=== PATIENT | male | born 1970 | race Caucasian/White ===

== ENCOUNTER 2018-11-03 11:12 | Emergency (ER) | payer MEDICAID, SELFPAY ==
[2018-11-03 11:26] VITALS: BP 150/96; PULSE 70; RESP 18; TEMP 36.9; O2SAT 98
--- NOTE | 2018-11-03 11:32 | W.ED.GENAD ---
Discharge Plan Disposition Patient Disposition: HOME Condition: Fair Discharge Details Chief Complaint: Laceration Clinical Impression: Hand laceration Primary Care Provider: Eduardo Cuellar ED Provider: Kamille Wolf Home Meds and New Rx's Prescriptions: Continued buprenorphine-naloxone [Suboxone] 12-3 mg Film 12 DAILY RF: 0 Discharge Instructions Instructions: Laceration (ED) Additional Instructions: Keep wound clean, dry, covered. Tylenol and ibuprofen as needed for discomfort. Please keep current dressing on for the next 24 hours. After that time, he may change to Band-Aid. Wear gloves when appropriate. Do not soak or submerge. May wash and he typically would with running water and soap. Please monitor for signs of infection including redness warmth, drainage, increased pain, fever/chills. If these or other new/worsening symptoms arise please seek care urgently once again. Please return in 1 week for suture removal. Referrals: Eduardo Cuellar MD [Primary Care Provider] - Medical Decision Making Patient is a 48 year old RHD male presenting for eval of laceration to left thenar emmenance. Was sharpening mower blade when he slipped with blade. Tetanus UTD. No sensory deficits. No tendon involvement. Full ROM. Discussed closure options with the patient, will close with suture. Verbal consent obtained. Please see procedure note. This was preformed using standard sterile technique. Patient tolerated well. Discussed wound care in depth. Discussed sxs of infection and when to seek car eurgently once again. He will return in 7 days for suture removal. Advised on what should prompt urgent evaluation once again. All of his questions and concerns were addressed, he is in agreement with this plan. HPI General Mode of arrival: ambulatory. Date/Time Provider Initiated Documentation: 11/03/18 11:32. Limitations to Documentation: no limitations. Information obtained by: patient. History of Present Illness 48 year old M presents to the emergency department with the chief complaint of laceration left hand, described as mild, Quality is described as aching, and is localized to the left and upper extremity. Patient reports no radiation. Patient started experiencing this minute(s) and it has been constant. No relieving factors improve symptom(s), No exacerbating factors reported . Patient notes no other symptoms.. Patient did receive the following treatments prior to arrival, none Related Data Home Medications Medication Instructions Recorded Confirmed buprenorphine-naloxone [Suboxone] 12 DAILY 11/03/18 Allergies Allergy/AdvReac Type Severity Reaction Status Date / Time No Known Allergies Allergy Unverified 11/03/18 11:30 General Stated Complaint: Laceration RIVERA: 3 Review of Systems Constitutional Reports as per HPI, Denies chills and Denies fever(s) Musculoskeletal Reports as per HPI Integumentary/Breasts Reports as per HPI Neurologic Reports as per HPI, Denies sensory deficit and Denies paresthesias [facility] Social History Smoking/Tobacco Use Status: Never Alcohol Intake: never Drug use: Never Do you feel safe at home: Yes Do you feel safe in your relationship?: Yes Exam Const General: cooperative, healthy appearing, comfortable, no acute distress and well developed Nutritional Appearance: average body habitus and well nourished Orientation: alert and awake Resp Effort & Inspection: normal respiratory effort, able to speak in complete sentences and no respiratory distress Cardio Rate: regular rate Rhythm: regular rhythm Skin Trauma: laceration (2.5cm linear laceration thenar emenance left hand) Neuro General: alert and awake Cognition: normal cognition Speech: speech normal Gait: normal gait Sensory Exam: no sensory deficits noted Extrem Left upper extremity: full ROM, normal capillary refill and hand Details: normal capillary refill, neuromotor exam normal, neurosensory exam normal, tendon exam normal, tenderness (over laceration) and laceration; no unusual warmth and no swelling; abnormal to inspection (laceration as above) Psych Appearance: grossly normal and well kempt Mental Status: mental status grossly normal Speech and Movement: speech and movement normal Course Vital Signs Temperature 36.9 C 11/03/18 11:26 Pulse 70 11/03/18 11:26 Respiratory Rate 18 11/03/18 11:26 Blood Pressure 150/96 H 11/03/18 11:26 Pulse Oximetry 98 11/03/18 11:26 Temperature 36.9 C 11/03/18 11:26 Temperature Source Temporal Artery Scan 11/03/18 11:26 Pulse 70 11/03/18 11:26 Respiratory Rate 18 11/03/18 11:26 Blood Pressure 150/96 H 11/03/18 11:26 Blood Pressure Position Sitting 11/03/18 11:26 Pulse Oximetry 98 11/03/18 11:26 Oxygen Delivery Method Room Air 11/03/18 11:26 Oxygen Flow Rate 0 11/03/18 11:26 Procedures Laceration Laceration 1: Site: hand Side (If applicable): left Size (cm): 2.5 Description: linear Depth: simple, single layer Local Anesthetic: Lidocaine 1% Amount of anesthesia used (mL): 4 Pre-repair: wound explored, irrigated extensively and deep structures intact Skin layer closed with: nylon Size (cm): 5-0 Number of sutures: 4 Technique: simple, interrupted
--- NOTE | 2018-11-03 12:05 | ED.GENADUL_ITS ---
Discharge Plan Disposition Patient Disposition: HOME Condition: Fair Discharge Details Chief Complaint: Laceration Clinical Impression: Hand laceration Primary Care Provider: Eduardo Cuellar ED Provider: Kamille Wolf Home Meds and New Rx's Prescriptions: Continued buprenorphine-naloxone [Suboxone] 12-3 mg Film 12 DAILY RF: 0 Discharge Instructions Instructions: Laceration (ED) Additional Instructions: Keep wound clean, dry, covered. Tylenol and ibuprofen as needed for discomfort. Please keep current dressing on for the next 24 hours. After that time, he may change to Band-Aid. Wear gloves when appropriate. Do not soak or submerge. May wash and he typically would with running water and soap. Please monitor for signs of infection including redness warmth, drainage, increased pain, fever/chills. If these or other new/worsening symptoms arise please seek care urgently once again. Please return in 1 week for suture removal. Referrals: Eduardo Cuellar MD [Primary Care Provider] - Medical Decision Making Patient is a 48 year old RHD male presenting for eval of laceration to left thenar emmenance. Was sharpening mower blade when he slipped with blade. Tetanus UTD. No sensory deficits. No tendon involvement. Full ROM. Discussed closure options with the patient, will close with suture. Verbal consent obtained. Please see procedure note. This was preformed using standard sterile technique. Patient tolerated well. Discussed wound care in depth. Discussed sxs of infection and when to seek car eurgently once again. He will return in 7 days for suture removal. Advised on what should prompt urgent evaluation once again. All of his questions and concerns were addressed, he is in agreement with this plan. HPI General Mode of arrival: ambulatory . Date/Time Provider Initiated Documentation: 11/03/18 11:32 . Limitations to Documentation: no limitations . Information obtained by: patient . History of Present Illness 48 year old M presents to the emergency department with the chief complaint of laceration left hand, described as mild, Quality is described as aching, and is localized to the left and upper extremity. Patient reports no radiation. Patient started experiencing this minute(s) and it has been constant. No relieving factors improve symptom(s), No exacerbating factors reported . Patient notes no other symptoms.. Patient did receive the following treatments prior to arrival, none Related Data Home Medications Medication Instructions Recorded Confirmed buprenorphine-naloxone [Suboxone] 12 DAILY 11/03/18 Allergies Allergy/AdvReac Type Severity Reaction Status Date / Time No Known Allergies Allergy Unverified 11/03/18 11:30 General Stated Complaint: Laceration RIVERA: 3 Review of Systems Constitutional Reports as per HPI, Denies chills and Denies fever(s) Musculoskeletal Reports as per HPI Integumentary/Breasts Reports as per HPI Neurologic Reports as per HPI, Denies sensory deficit and Denies paresthesias [facility] Social History Smoking/Tobacco Use Status: Never Alcohol Intake: never Drug use: Never Do you feel safe at home: Yes Do you feel safe in your relationship?: Yes Exam Const General: cooperative, healthy appearing, comfortable, no acute distress and well developed Nutritional Appearance: average body habitus and well nourished Orientation: alert and awake Resp Effort & Inspection: normal respiratory effort, able to speak in complete sentences and no respiratory distress Cardio Rate: regular rate Rhythm: regular rhythm Skin Trauma: laceration (2.5cm linear laceration thenar emenance left hand) Neuro General: alert and awake Cognition: normal cognition Speech: speech normal Gait: normal gait Sensory Exam: no sensory deficits noted Extrem Left upper extremity: full ROM, normal capillary refill and hand Details: normal capillary refill, neuromotor exam normal, neurosensory exam normal, tendon exam normal, tenderness (over laceration) and laceration; no unusual warmth and no swelling; abnormal to inspection (laceration as above) Psych Appearance: grossly normal and well kempt Mental Status: mental status grossly normal Speech and Movement: speech and movement normal Course Vital Signs Temperature 36.9 C 11/03/18 11:26 Pulse 70 11/03/18 11:26 Respiratory Rate 18 11/03/18 11:26 Blood Pressure 150/96 H 11/03/18 11:26 Pulse Oximetry 98 11/03/18 11:26 Temperature 36.9 C 11/03/18 11:26 Temperature Source Temporal Artery Scan 11/03/18 11:26 Pulse 70 11/03/18 11:26 Respiratory Rate 18 11/03/18 11:26 Blood Pressure 150/96 H 11/03/18 11:26 Blood Pressure Position Sitting 11/03/18 11:26 Pulse Oximetry 98 11/03/18 11:26 Oxygen Delivery Method Room Air 11/03/18 11:26 Oxygen Flow Rate 0 11/03/18 11:26 Procedures Laceration Laceration 1: Site: hand Side (If applicable): left Size (cm): 2.5 Description: linear Depth: simple, single layer Local Anesthetic: Lidocaine 1% Amount of anesthesia used (mL): 4 Pre-repair: wound explored, irrigated extensively and deep structures intact Skin layer closed with: nylon Size (cm): 5-0 Number of sutures: 4 Technique: simple, interrupted
== END 2018-11-03 12:08 | disposition home or self-care (01) ==
PROVIDERS: Emergency Provider Physician Assistant; PCP Internal Medicine
DX: S61.412A Laceration without foreign body of left hand, initial encounter (principal); W28.XXXA Contact with powered lawn mower, initial encounter
CPT/HCPCS: 12001

== ENCOUNTER 2019-11-04 16:16 | Outpatient (REF) | payer MEDICAID, SELFPAY ==
[2019-11-05 23:31] LABS: COVID-19 RT-PCR Result NEGATIVE (Negative)
== END 2019-11-04 16:36 ==
LOC: NCHCN 16:16
PROVIDERS: PCP Internal Medicine; Visit Provider Nurse Practitioner Family
DX: Z20.828 Contact with and (suspected) exposure to other viral communicable diseases (principal)
CPT/HCPCS: U0003

== ENCOUNTER 2020-01-06 12:44 | Outpatient (REF) | payer MEDICAID, SELFPAY ==
[2020-01-06 20:23] LABS: FREE T4 1.18 ng/dL (0.76-1.46); TSH 1.09 uIU/mL (0.36-3.74)
== END 2020-01-06 13:04 ==
LOC: NCHCN 12:44
PROVIDERS: PCP Internal Medicine; Visit Provider Internal Medicine
DX: R49.0 Dysphonia (principal); E04.1 Nontoxic single thyroid nodule; I10 Essential (primary) hypertension
CPT/HCPCS: 84439; 84443

== ENCOUNTER 2021-10-11 10:16 | Outpatient (REF) | payer OTHER, SELFPAY ==
--- NOTE | 2021-10-11 09:30 | TONG_PTH ---
PATIENT: Des Morillo LOC: [facility] U#:[id number] AGE/SX: 51/M ROOM: RE10/11/[address]: SHILPI Terry : 1970 BED: DIS: 10/11/2021 SPEC #: [id number] RECD: 10/11/21 14:37 STATUS: JENNIFER HENDRICKS #: [id number] GABRIEL: 10/11/21 09:[address]: Mal Ace DEPT: Surgical Specimen RECD BY: Araseli Mcclellan ENTERED: 10/11/21 14:38 SP TYPE: GEETHA MCKEON DR: Eduardo Cuellar Tissues: 1 - TONGUE BIOPSY Procedures: GROSS AND MICRO LEVEL 4 Comments: [id number]
== END 2021-10-11 10:17 | disposition home or self-care (01) ==
LOC: LBN 10:16
PROVIDERS: PCP Internal Medicine; Visit Provider Physician Assistant
DX: K14.8 Other diseases of tongue (principal); Z87.891 Personal history of nicotine dependence
CPT/HCPCS: 88305

== ENCOUNTER 2022-10-23 16:32 | Outpatient (REF) | payer MEDICAID, SELFPAY ==
[2022-10-23 19:24] LABS: Hemoglobin A1C 5.1 % (<5.7)
[2022-10-23 19:26] LABS: ALT 27 U/L (16-63); AST 36 U/L (15-37); Albumin 4.4 g/dL (3.4-5.0); Alkaline Phosphatase 100 U/L (46-116); Anion Gap 11.8 mmol/L (3-11); BUN 16 mg/dL (7-18); Bilirubin, Total 0.8 mg/dL (0.2-1.0); CO2 22.2 mmol/L (21.0-32.0); CREATININE 1.1 mg/dL (0.70-1.30); Calcium 8.7 mg/dL (8.5-10.1); Calculated LDL 60 mg/dL (<100); Chloride 97 mmol/L (98-107); Cholesterol 137 mg/dL (<200); Estimated GFR 80.77 (mL/min/1.73m2); Glucose 84 mg/dL (74-106); HDL Cholesterol 68 mg/dL (40-60); Potassium 4.3 mmol/L (3.5-5.1); Sodium 131 mmol/L (136-145); TSH (W/Ref FT4) 1.93 uIU/mL (0.36-3.74); Total Protein 7.7 g/dL (6.4-8.2); Triglyceride 45 mg/dL (<150)
[2022-10-25 09:27] LABS: HIV-1/2 Ag & Ab Screen Negative (Negative)
[2022-10-27 10:38] LABS: Hepatitis C Ab w Rflx HCV PCR Negative (Negative)
== END 2022-10-23 16:33 | disposition home or self-care (01) ==
LOC: NCHCN 16:32
PROVIDERS: PCP Internal Medicine; Visit Provider Nurse Practitioner Family
DX: I10 Essential (primary) hypertension (principal); E04.1 Nontoxic single thyroid nodule; Z13.1 Encounter for screening for diabetes mellitus; Z11.4 Encounter for screening for human immunodeficiency virus [HIV]; Z11.59 Encounter for screening for other viral diseases
CPT/HCPCS: 80053; 80061; 86803; 87389; 83036; 84443

== ENCOUNTER 2023-06-18 10:06 | Outpatient (REF) | payer MEDICAID, SELFPAY ==
[2023-06-18 15:58] LABS: Anion Gap 5.8 mmol/L (3-11); BUN 20 mg/dL (7-18); CO2 27.2 mmol/L (21.0-32.0); Calcium 8.6 mg/dL (8.5-10.1); Chloride 104 mmol/L (98-107); Glucose 105 mg/dL (74-106); Potassium 4.6 mmol/L (3.5-5.1); Sodium 137 mmol/L (136-145)
== END 2023-06-18 10:07 | disposition home or self-care (01) ==
LOC: NCHCN 10:06
PROVIDERS: PCP Nurse Practitioner Family; Visit Provider Nurse Practitioner Family
DX: Z82.49 Family history of ischemic heart disease and other diseases of the circulatory system (principal)
CPT/HCPCS: 80048

== ENCOUNTER → 2023-06-25 02:53 | Outpatient (CLI) | payer MEDICAID, SELFPAY ==
--- NOTE | 2023-06-25 | DI.CT_ITS ---
Exam(s) CT BRAIN CTA EXAM: CT BRAIN CTA CLINICAL HISTORY: FAMILY H/O ANEURYSM,Z82.49,INTERMITTENT DIZZINESS. TECHNIQUE: Imaging Protocol: Both noninfused and contrast infused CT scans of the brain were perform ed. IV Contrast Dose =75 cc Axial computed tomography images with coronal and sagittal reformatted images were created and review ed COMPARISON: No exams were available for comparison FINDINGS: Anterior circulation: Both internal carotid arteries are patent in the skull base-carotid canals as w ell as within the cavernous sinuses. Supraclinoid aspects are patent and nonaneurysmal. Both A1 seg ments are patent as are the anterior cerebral arteries and there is no evidence of aneurysm at the le meenu of the anterior communicating artery. Both middle cerebral arteries are patent. No significant stenosis. No aneurysms seen in these vesse ls. Posterior circulation: At the skull base both vertebral arteries contribute to the formation of the b asilar artery. The basilar artery ascends with normal luminal diameter. Distally gives off superior cerebellar arteries and above this level terminates as patent bilateral posterior cerebral arteries. There is no aneurysm at the level of the tip of the basilar artery nor elsewhere in the [place]. There are no skull fractures nor fluid in the visualized paranasal sinuses. There is no evidence of intracranial hemorrhage, mass effect, or shift of midline structures. There are no extra-axial fluid collections. The ventricles are not enlarged or shifted and there is no blo od within the ventricular system nor within the basal cisterns. There are no ring enhancing lesions in the brain and there is no abnormal meningeal enhancement, foca l or diffuse. IMPRESSION: No significant intracranial findings.No aneurysms evident. No significant enhancing intracranial findings. RADIATION DOSE DELIVERED: 1,891.35mGy.cm Total DLP DATA REPOSITORY: All CT scans at this facility are submitted to the National Radiology Data Registry (NRDR) Dose Index Registry (DIR) with the [employer] (ACR). RADIATION OPTIMIZATION: All CT scans at this facility use at least one of these dose optimization te chniques: automated exposure control; mA and/or kV adjustment per patient size (includes targeted exa ms where dose is matched to clinical indication); or iterative reconstruction.
[2023-06-25] MEDS: Omnipaque 350 MG/ML 100 ML BTL 85 ML IJ (09:02)
[2023-06-25] MEDS: Normal Saline - Diluent 50 ML VIAL IJ (09:03)
== END ==
PROVIDERS: PCP Nurse Practitioner Family; Visit Provider Nurse Practitioner Family
DX: Z82.49 Family history of ischemic heart disease and other diseases of the circulatory system (principal); R42 Dizziness and giddiness
CPT/HCPCS: 70496; J3490

== ENCOUNTER 2023-07-01 14:01 | Outpatient (CLI) | payer MEDICAID, SELFPAY ==
--- NOTE | 2023-07-01 14:02 | DI.RAD_ITS ---
Exam(s) XR SHOULDER LT COMPLETE 2+V EXAM: XR SHOULDER LT COMPLETE 2+V CLINICAL HISTORY: BILATERAL SHOULDER PAIN. TECHNIQUE: 2D digital imaging was performed. Three views. COMPARISON: No exams were available for comparison FINDINGS: BONES: No acute fracture is present. No bony destructive lesion is seen. JOINTS: No dislocation present. Minimal spurring at the AC joint. Moderate narrowing of the glenohu meral joint space. Osteophyte of the inferior margin of the humeral head. sclerosis of the glenoid a mild inferior spurring. SOFT TISSUE: Normal. IMPRESSION: Moderate to severe degenerative changes of the glenohumeral joint. DATA REPOSITORY: RADIATION DOSE DELIVERED:
--- NOTE | 2023-07-01 14:03 | DI.RAD_ITS ---
Exam(s) XR SHOULDER RT COMPLETE 2+V EXAM: XR SHOULDER RT COMPLETE 2+V CLINICAL HISTORY: BILATERAL SHOULDER PAIN. TECHNIQUE: 2D digital imaging was performed. Two views. COMPARISON: No exams were available for comparison FINDINGS: BONES: No acute fracture is present. No bony destructive lesion is seen. JOINTS: No dislocation present. Moderate to severe narrowing of the glenohumeral joint. Prominent s pur the inferior margin of the humeral head. Mild spurring at the glenoid. Mild spurring at the AC joint. SOFT TISSUE: Normal. IMPRESSION: Moderate to severe degenerative changes of the glenohumeral joint DATA REPOSITORY: RADIATION DOSE DELIVERED:
== END 2023-07-01 14:02 | disposition home or self-care (01) ==
LOC: DIORS 14:03
PROVIDERS: PCP Nurse Practitioner Family; Visit Provider Student in an Organized Health Care Education/Training Program
DX: M19.011 Primary osteoarthritis, right shoulder; M19.012 Primary osteoarthritis, left shoulder
CPT/HCPCS: 73030

== ENCOUNTER → 2023-07-16 00:23 | Outpatient (CLI) | payer MEDICAID, SELFPAY ==
--- NOTE | 2023-07-16 07:30 | DI.RAD_ITS ---
Exam(s) RF JOINT INJ. FLUORO GUID RAD EXAM: RF JOINT INJ. FLUORO GUID RAD CLINICAL HISTORY: L SHOULDER PAIN,fluoro guided injection,oa lt glenohumeral jt,m19.012. The Patien t has had persistent left shoulder pain. Noninvasive measures have been tried. To serve as both vineet gnostic and therapeutic, an injection under fluoroscopy was recommended. The risks of the procedure were discussed with their Orthopedic provider and the patient elected to proceed. TECHNIQUE: 2D and realtime digital imaging was performed. CONTRAST MATERIAL: Water soluble contrast was utilized. COMPARISON: No exams were available for comparison FINDINGS: The Patient was greeted in the fluoroscopy room. The correct side was identified and the consent was reviewed with the patient and was signed. The patient was properly positioned on the fluoroscopy ta ble. The left shoulderwas then prepped with Chloraprep and draped. The left shoulder injection star ting point was identified by the bony landmarks and fluoroscopy. The skin and soft tissue in the tra ct of the injection was anesthetized with 1% Lidocaine. A spinal needle was then inserted into the l eft shoulder joint at the level of the glenohumeral joint under fluoroscopic guidance. A small amoun t of Omnipaque solution was injected to confirm intraarticular placement. Once confirmed, the left s houlder was injected with 5cc of a solution containing 0.5% Bupivaine and 80 mg of Depo-Medrol. A ba ndaid was placed on the injection site. The patient tolerated the procedure well and left the depart ment in good condition. IMPRESSION: Successful left shoulder injection. RADIATION DOSE DELIVERED: Sandrar=1.31 mGy
--- NOTE | 2023-07-16 15:15 | DI.RAD_ITS ---
Exam(s) RF JOINT INJ. FLUORO GUID RAD EXAM: RF JOINT INJ. FLUORO GUID RAD CLINICAL HISTORY: R SHOULDER PAIN,fluoro guided injection,oa rt glenohumeral jt,m19.011. The Patien t has had persistent right shoulder pain. Noninvasive measures have been tried. To serve as both di agnostic and therapeutic, an injection under fluoroscopy was recommended. The risks of the procedure were discussed with their Orthopedic provider and the patient elected to proceed. TECHNIQUE: 2D and realtime digital imaging was performed. CONTRAST MATERIAL: Water soluble contrast was utilized. COMPARISON: No exams were available for comparison FINDINGS: The Patient was greeted in the fluoroscopy room. The correct side was identified and the consent was reviewed with the patient and was signed. The patient was properly positioned on the fluoroscopy ta ble. The right shoulderwas then prepped with Chloraprep and draped. The right shoulder injection st arting point was identified by the bony landmarks and fluoroscopy. The skin and soft tissue in the t ract of the injection was anesthetized with 1% Lidocaine. A spinal needle was then inserted into the right shoulder joint at the level of the glenohumeral joint under fluoroscopic guidance. A small am ount of Omnipaque solution was injected to confirm intraarticular placement. Once confirmed, the rig ht shoulder was injected with 5cc of a solution containing 0.5% Bupivaine and 80 mg of Depo-Medrol. A bandaid was placed on the injection site. The patient tolerated the procedure well and left the de partment in good condition. IMPRESSION: Successful right shoulder injection. RADIATION DOSE DELIVERED: Sandrar=3.28 mGy
[2023-07-16] MEDS: Bupivacaine 0.5% Pres-Free 10 ML VIAL 8 ML IJ ×2 (16:03→16:10)
[2023-07-16] MEDS: methylPREDNISolone ACETATE 80 MG/ML VIAL IM ×2 (16:05→16:09)
[2023-07-16] MEDS: Omnipaque 300 MG/ML 10 ML BTL 5 ML IJ ×2 (16:06→16:09)
[2023-07-16] MEDS: Normal Saline - Diluent 50 ML VIAL IJ ×2 (16:06→16:10)
== END ==
PROVIDERS: PCP Nurse Practitioner Family; Visit Provider Student in an Organized Health Care Education/Training Program
DX: M19.011 Primary osteoarthritis, right shoulder (principal); M19.012 Primary osteoarthritis, left shoulder
CPT/HCPCS: 77002; J0665; J1040

== ENCOUNTER → 2023-12-08 01:21 | Outpatient (CLI) | payer MEDICAID, SELFPAY ==
--- NOTE | 2023-12-08 08:42 | DI.CTLCSR_ITS ---
Exam(s) CT CHEST LUNG CANCER SCREEN EXAM: CT CHEST LUNG CANCER SCREEN CLINICAL HISTORY: FORMER [employer], Z87.891, SCREENING FOR LUNG CANCER. TECHNIQUE: Imaging Protocol: Low Dose Technique CONTRAST MATERIAL: None COMPARISON: CT CT BRAIN CTA from 06/25/2023 FINDINGS: CHEST: LUNGS: There is scarring and bullous changes in the lung apices and PD-hyperinflation changes evident in both lung hand. There are no confluent infiltrates nor pleural effusions. There is, however, a solitary small 4-5 mm noncalcified nodule in the left lower lobe (series 3/image 131). There are no nodules elsewhere in the left lung nor in the right lung. MEDIASTINUM: There is no obvious hilar nor mediastinal adenopathy. CARDIAC: Heart size is normal. There is no pericardial effusion.Caliber of the thoracic aorta is wit hin normal limits. OTHER: OSSEOUS: No significant osseous lesions.No fractures evident.. IMPRESSION: 1. There is a solitary 4-5 mm noncalcified nodule in the left lower lobe. No other lung nodules evid ent. 2. No infiltrates nor pleural effusions nor intrathoracic adenopathy. 3. Lung RADS Cat 3 - Probably Benign: Probably benign finding(s) - short term follow-up suggested; in clude nodules with a low likelihood of becoming a clinically active cancer. Lung-RADS 1.0 CATEGORIES: Category 0 - Prior chest CT exam(s) being located for comparison. Category 1 - Annual screening in 12 months. No nodules or definitely benign nodules. Category 2 - Annual screening in 12 months. Benign appearance. Nodules with low likelihood of becomin g active cancer. Category 3 - 6-month follow-up. Probably benign. Short-term follow-up suggested. Nodules with low lik elihood of becoming active cancer. Category 4A - 3-month follow-up and CT/PET if >8 mm in size. Suspicious finding. Findings which requi re additional testing. Category 4B - Findings which require additional testing and tissue sampling. Category 4X - Category 3 or 4 nodules with additional features or imaging findings that increases the suspicion of malignancy. Modifier S- Potentially clinically significant findings (non lung cancer) RADIATION DOSE DELIVERED: Total DLP DATA REPOSITORY: All CT scans at this facility are submitted to the National Radiology Data Registry (NRDR) Dose Index Registry (DIR) with the [employer] (ACR). RADIATION OPTIMIZATION: All CT scans at this facility use at least one of these dose optimization te chniques: automated exposure control; mA and/or kV adjustment per patient size (includes targeted exa ms where dose is matched to clinical indication); or iterative reconstruction.
== END ==
PROVIDERS: PCP Nurse Practitioner Family; Visit Provider Nurse Practitioner Family
DX: F17.290 Nicotine dependence, other tobacco product, uncomplicated (principal); Z87.891 Personal history of nicotine dependence
CPT/HCPCS: 71271

== ENCOUNTER 2024-02-16 07:46 | Emergency (ER) | payer MEDICAID, SELFPAY ==
[2024-02-16] VITALS (8 sets, daily range): BP systolic 144–189; BP diastolic 89–112; PULSE 51–63; RESP 8–18; TEMP 36.4; O2SAT 96–100
--- NOTE | 2024-02-16 07:45 | RT.EKG_ITS ---
APPROVED REPORT Exam: Resting ECG Reason for Exam: chest pain Patient Location: E HR:40 bpm ECG Measurements Heart Rate 40 AXIS LA 214 P 53 QRSd 105 QRS -47 QT 473 T 58 QTc 386 Conclusion Slow sinus arrhythmia...V-rate 31- 54, mean< 60 Borderline prolonged LA interval...LA >212, V-rate 30- 49 LAD, consider left anterior fascicular block...axis(240,-40), S>R II III aVF Narrow irregular bradycardia
--- NOTE | 2024-02-16 07:45 | DI.RAD_ITS ---
Exam(s) XR CHEST 2V PA LATERAL EXAM: XR CHEST 2V PA LATERAL CLINICAL HISTORY: chest pain TECHNIQUE: 2D digital imaging was performed of the chest. Two images were obtained. PA and lateral views were obtained. COMPARISON: CT CT CHEST LUNG CANCER SCREEN from 12/08/2023 FINDINGS: MEDIASTINUM: Normal. HEART: Normal. PULMONARY VASCULATURE: Normal. LUNGS: The lungs are hyperinflated suggesting underlying COPD. No focal consolidating infiltrates ar e present. PLEURAL SPACE: No pleural effusion or pneumothorax. BONE:Within normal limits for the patient's age. There is a right convex mid thoracic scoliosis. OTHER FINDINGS:Normal. IMPRESSION: No acute pulmonary findings. DATA REPOSITORY: RADIATION DOSE DELIVERED:
--- NOTE | 2024-02-16 07:57 | ED.GENADUL_ITS ---
Discharge Plan Disposition Patient Disposition: Home Condition: Improving Discharge Details Chief Complaint: Chest Pain Clinical Impression: Chest pain Primary Care Provider: Sepideh Murray ED Provider: Raza Morel Home Meds and New Rx's Prescriptions: No Action mirtazapine 45 mg tablet 45 mg PO QHS fluticasone propionate [Flovent HFA] 44 mcg/actuation HFA aerosol inhaler 2 puff IH BID Rx Instructions: administer with spacer albuterol sulfate [Proventil HFA] 90 mcg/actuation HFA aerosol inhaler 2 puff IH QID atorvastatin 20 mg tablet 20 mg PO QHS diltiazem HCl 90 mg capsule,extended release 12 hr 90 mg PO BID gabapentin 400 mg capsule See Rx Instructions .ROUTE .COMPLEX Rx Instructions: take 3 to 4 capsules in the afternoon and 1 to 2 capsules at bedtime; lisinopril 10 mg tablet 10 mg PO QHS omeprazole 20 mg capsule,delayed release(DR/EC) 20 mg PO DAILY buprenorphine-naloxone [Suboxone] 12-3 mg film 2 film sublingual DAILY Discharge Instructions Instructions: Chest Pain (DC) Additional Instructions: Please follow-up with your primary care physician. Please return to the emergency department for any worsening symptoms HPI General Date/Time Provider Initiated Documentation: 02/16/24 07:55 . HPI Narrative: 54-year-old male presents with anterior chest pain described as a gurgling sensation up into his chest, no shortness of breath or vomiting, no diaphoresis or presyncope no palpitations, no history of cardiovascular disease or thromboembolic disease. Endorses having a history of cardiac evaluation with negative workup. Related Data Home Medications ?Medication ?Instructions ?Recorded ?Confirmed albuterol sulfate 90 mcg/actuation 2 puff inhalation QID 01/20/20 02/16/24 aerosol inhaler (Proventil HFA) fluticasone propionate 44 2 puff inhalation BID 01/20/20 02/16/24 mcg/actuation HFA aerosol inhaler (Flovent HFA) mirtazapine 45 mg tablet 45 mg PO QHS 01/20/20 02/16/24 atorvastatin 20 mg tablet 20 mg PO QHS 06/24/23 02/16/24 diltiazem HCl 90 mg 90 mg PO BID 06/24/23 02/16/24 capsule,extended release 12 hr gabapentin 400 mg capsule See Rx Instructions .Route .COMPLEX 06/24/23 02/16/24 lisinopril 10 mg tablet 10 mg PO QHS 06/24/23 02/16/24 omeprazole 20 mg capsule,delayed 20 mg PO DAILY 06/24/23 02/16/24 release buprenorphine 12 mg-naloxone 3 mg 2 film sublingual DAILY 07/01/23 02/16/24 sublingual film (Suboxone) Allergies Allergy/AdvReac Type Severity Reaction Status Date / Time No Known Allergies Allergy Unverified 02/16/24 07:55 General Stated Complaint: Chest Pain RIVERA: 2 Exam Narrative Exam Narrative: Appears uncomfortable Moist mucous membranes tongue secretions Normal heart sounds no murmurs rubs or gallop Lungs clear bilaterally no wheezes rales or rhonchi no tachypnea no cyanosis Abdomen soft nontender nondistended nonperitoneal Moving all extremities without deficit alert oriented cranial nerves intact normal speech Course Vital Signs Vital signs: Vital Signs Temperature 36.4 C 02/16/24 07:49 Pulse 55 L 02/16/24 07:49 Respiratory Rate 10 L 02/16/24 07:49 Blood Pressure 188/104 H 02/16/24 07:49 Pulse Oximetry 100 02/16/24 07:49 Temperature 36.4 C 02/16/24 07:49 Temperature Source Temporal Artery Scan 02/16/24 07:49 Pulse 55 L 02/16/24 07:49 Respiratory Rate 10 L 02/16/24 07:49 Respiratory Effort Short of Breath 02/16/24 07:53 Blood Pressure 188/104 H 02/16/24 07:49 Blood Pressure Position Sitting 02/16/24 07:49 Pulse Oximetry 100 02/16/24 07:49 Oxygen Delivery Method Room Air 02/16/24 07:49 Oxygen Flow Rate 0 02/16/24 07:49 Pain Level 10 02/16/24 07:49 Medical Decision Making 54-year-old male presents with anterior chest pain described as a gurgling sensation up into his chest, no shortness of breath or vomiting, no diaphoresis or presyncope no palpitations, no history of cardiovascular disease or thromboembolic disease. Endorses having a history of cardiac evaluation with negative workup. Noted to be bradycardic and hypertensive, holding his anterior chest, EKG sinus bradycardia without acute ischemic changes, must consider ACS versus GERD/gastritis lower suspicion for PE pneumonia pneumothorax or aortic pathology lower suspicion for cholecystitis or appendicitis colitis or enteritis. Will load with aspirin, will provide GI cocktail famotidine Mylanta lidocaine, sublingual nitro, Zofran labs including troponin BNP chest x-ray close reassessment 10: 13 patient resting comfortably asymptomatic. Feeling much better after meds. 2 troponin negative. Nonischemic. Patient is taken his home dose of Suboxone. Resting comfortably. Quality:SDOH Health Related Social Needs: No Data to Display PFSH All Active Problems (Updated 02/16/24 @ 10:14 by Raza Morel MD) Chest pain (Acute) Osteoarthritis of right glenohumeral joint (Acute) Osteoarthritis of left glenohumeral joint (Acute) Tongue mass (Acute) Medical History (Updated 02/16/24 @ 10:14 by Raza Morel MD) Opioid dependence Insomnia related to another mental disorder COPD (chronic obstructive pulmonary disease) Anxiety Low back pain Erectile dysfunction Cocaine abuse Exposure to COVID-19 virus Unexplained weight loss Thyroid nodule Chronic cough Mass of left side of neck Hypertension Smoker Hoarseness Social History Smoking/Tobacco Use Status: Never Smoking risk assessment performed?: Yes Alcohol Intake: never Drug use: Never Do you feel safe at home: Yes Do you feel safe in your relationship?: Yes
[2024-02-16] MEDS: nitroGLYcerin 0.4 MG TAB SL (08:10)
[2024-02-16] MEDS: Aspirin 81 MG CHEW 324 MG CH (08:11)
[2024-02-16] MEDS: Famotidine 20 MG/2 ML VIAL IVP (08:11)
[2024-02-16] MEDS: Normal Saline 500 ML 1000 ML IV (08:12)
[2024-02-16] MEDS: Ondansetron 4 MG/2 ML VIAL IVP (08:12)
[2024-02-16 08:20] LABS: Abs Immature Grans 0.02 10^3/uL (0.0-0.06); Absolute Basophil Count 0.06 10^3/uL (0.0-0.2); Absolute Eosinophil Count 0.16 10^3/uL (0.0-0.7); Absolute Lymphocyte Count 2.77 10^3/uL (1.2-3.4); Absolute Monocyte Count 0.52 10^3/uL (0.1-0.8); Absolute Neutrophil Count 3.42 10^3/uL (1.2-6.7); Basophils % 0.9 %; Eosinophils % 2.3 %; HCT 43.2 % (40.0-50.0); HGB 14.4 g/dL (13.5-17.5); Immature Grans % 0.3 %; Lymphocytes % 39.9 %; MCH 31.4 pg (27.0-33.0); MCHC 33.3 % (32.0-36.0); MCV 94 fL (80-95); MPV 9.4 fL (8.0-11.0); Monocytes % 7.5 %; Neutrophils % 49.1 %; Platelet Count 244 10^3/uL (130-400); RBC 4.59 10^6/uL (4.36-5.78); RDW 12.3 % (11.8-14.1); RDW-SD 42.5 fL; WBC 6.95 10^3/uL (4.4-10.8)
[2024-02-16 08:39] LABS: ALT 25 U/L (16-63); AST 22 U/L (15-37); Alkaline Phosphatase 87 U/L (46-116); BUN 25 mg/dL (7-18); Bilirubin, Total 0.37 mg/dL (0.2-1.0); CREATININE 1.1 mg/dL (0.70-1.30); Calcium 8.6 mg/dL (8.5-10.1); Chloride 104 mmol/L (98-107); Estimated GFR 79.77 (mL/min/1.73m2); Glucose 104 mg/dL (74-106); Potassium 3.2 mmol/L (3.5-5.1); Sodium 140 mmol/L (136-145); Total Protein 7.2 g/dL (6.4-8.2); Troponin I 7 ng/L (<or=76)
[2024-02-16 09:00] LABS: NT-proBNP 132 pg/mL (<300)
[2024-02-16 09:41] LABS: Troponin I 9 ng/L (<or=76)
== END 2024-02-16 10:47 | disposition home or self-care (01) ==
PROVIDERS: Emergency Provider Emergency Medicine; PCP Nurse Practitioner Family
DX: R07.9 Chest pain, unspecified (principal)
CPT/HCPCS: 36415; 80053; 93005; 96374; 96375; 99284; 71046; 83735; 83880; 84484; 85025; 85610; 85730; 93010; 99283; J2405

== ENCOUNTER 2024-05-19 09:43 | Outpatient (REF) | payer MEDICAID, SELFPAY ==
[2024-05-19 15:01] LABS: Anion Gap 6.7 mmol/L (3-11); BUN 24 mg/dL (7-18); CO2 27.3 mmol/L (21.0-32.0); CREATININE 1.2 mg/dL (0.70-1.30); Calcium 8.9 mg/dL (8.5-10.1); Calculated LDL 100 mg/dL (<100); Chloride 105 mmol/L (98-107); Cholesterol 178 mg/dL (<200); Estimated GFR 71.86 (mL/min/1.73m2); Glucose 107 mg/dL (74-106); HDL Cholesterol 62 mg/dL (40-60); Potassium 4.5 mmol/L (3.5-5.1); Sodium 139 mmol/L (136-145); Triglyceride 81 mg/dL (<150)
== END 2024-05-19 09:44 | disposition home or self-care (01) ==
LOC: NCHCN 09:43
PROVIDERS: PCP Nurse Practitioner Family; Visit Provider Nurse Practitioner Family
DX: E78.5 Hyperlipidemia, unspecified (principal); I10 Essential (primary) hypertension
CPT/HCPCS: 80048; 80061

== ENCOUNTER 2024-07-14 00:44 | Outpatient (CLI) | payer MEDICAID, SELFPAY ==
--- NOTE | 2024-07-14 07:45 | DI.CT_ITS ---
Exam(s) CT CHEST WO EXAM: CT CHEST WO CLINICAL HISTORY: Imaging of lung abnl, R91.8, 6-mo f/u nodule seen on LDCT 11/2023. TECHNIQUE: Imaging protocol: Axial computed tomography images were obtained and coronal and sagittal reformatted images were created and reviewed. Lung Computer Aided Detection (CAD) was utilized. COMPARISON: CT CT CHEST LUNG CANCER SCREEN from 12/08/2023 FINDINGS: Tracheobronchial tree: Patent where visualized. No bronchiectasis is present. Pulmonary parenchyma: No consolidation or dominant measurable mass. Moderate centrilobular emphysemat ous changes are present. There is a stable 5 mm nodule in the left lower lobe (series 2, image 129). There has been interval development of a cluster of nodules in the lateral aspect of the left upper lobe. The largest measures 3 mm. Mediastinum and [place]: No dominant adenopathy or fluid collection. The esophagus is unremarkable. Thyroid gland: Unremarkable. Pleura: No effusion or pneumothorax. Heart: The heart is not dilated. Two vessel coronary artery calcification is present. No pericardial effusion. Aorta: Thoracic aorta non-dilated. Mild atherosclerotic calcification is present. Upper abdomen: Unremarkable. Lymph nodes: Within normal limits. Soft tissues: Unremarkable. Bones:Within normal limits for the patient's age. IMPRESSION: 1. Stable left lower lobe pulmonary nodule. 2. Cluster of a few nodules in the lateral aspect of the left upper lobe. The largest measures 3 mm. This may represent a small reticular nodular infiltrate. Please correlate clinically. 3. A follow-up examination in 6 months is recommended to document resolution of the infiltrate and ev aluate for any further nodule development. RADIATION DOSE DELIVERED: 162.75mGy.cm Total DLP 162.75mGy.cm Total DLP DATA REPOSITORY: All CT scans at this facility are submitted to the National Radiology Data Registry (NRDR) Dose Index Registry (DIR) with the [employer] (A[employer]). RADIATION OPTIMIZATION: All CT scans at this facility use at least one of these dose optimization te chniques: automated exposure control; mA and/or kV adjustment per patient size (includes targeted exa ms where dose is matched to clinical indication); or iterative reconstruction.
== END 2024-07-14 01:04 ==
LOC: DI 00:44
PROVIDERS: PCP Nurse Practitioner Family; Visit Provider Nurse Practitioner Family
DX: R91.8 Other nonspecific abnormal finding of lung field (principal)
CPT/HCPCS: 71250